=== PATIENT | female | born 1975 | race Caucasian/White ===

== ENCOUNTER 2020-05-13 05:22 | Inpatient (IN) | payer BC ==
[2020-05-13] MEDS ORDERED: Scopolamine 1.5 MG Transdermal Patch TOP SCH (05:40)
[2020-05-13] MEDS ORDERED: Celecoxib 200 MG Cap PO ONE (06:30)
[2020-05-13] MEDS ORDERED: Dextrose 5%-Lactated Ringers 1,000 ML IV SCH (06:30)
[2020-05-13] MEDS ORDERED: Albuterol/Ipratropium 3.0-0.5 MG/3 ML Neb Soln NEB ONE (06:30)
[2020-05-13] MEDS ORDERED: Acetaminophen 500 MG Tab PO ONE (06:30)
[2020-05-13] MEDS ORDERED: cefOXitin 2 GM Vial ONE (06:54)
[2020-05-13] MEDS ORDERED: Succinylcholine 200 MG/10 ML MDV ONE (07:04)
[2020-05-13] MEDS ORDERED: Glycopyrrolate 0.2 MG/ML 5 ML MDV ONE (07:04)
[2020-05-13] MEDS ORDERED: Propofol 200 MG/20 ML SDV ONE (07:04)
[2020-05-13] MEDS ORDERED: Dexamethasone 4 MG/ML SDV ONE (07:04)
[2020-05-13] MEDS ORDERED: Rocuronium 50 MG/5 ML Vial ONE (07:04)
[2020-05-13] MEDS ORDERED: Neostigmine Methylsulfate 1 MG/ML 5 ML Syringe ONE (07:04)
[2020-05-13] MEDS ORDERED: Ondansetron 4 MG/2 ML SDV ONE (07:04)
[2020-05-13] MEDS ORDERED: fentaNYL 250 MCG/5 ML SDV ONE ×2 (07:06→07:35)
[2020-05-13] MEDS: cefOXitin 2 GM in Sodium Chloride 0.9% 50 ML IV ONE ×2 (07:13→10:29)
[2020-05-13] MEDS ORDERED: Ketamine 500 MG/5 ML MDV IV SCH (07:30)
[2020-05-13] MEDS ORDERED: Magnesium Sulfate 3.6 GM in Sodium Chloride 0.9% 100 ML IV SCH (07:30)
[2020-05-13] MEDS ORDERED: Ketamine 50 MG in Sodium Chloride 0.9% 49.5 ML IV SCH (07:30)
[2020-05-13] MEDS ORDERED: Magnesium Sulfate 3.8 GM in Sodium Chloride 0.9% 250 ML IV ONE (07:30)
[2020-05-13] MEDS ORDERED: Cyclobenzaprine 10 MG Tab PO PRN (10:33)
[2020-05-13] MEDS ORDERED: oxyCODONE 5 MG Tab PO PRN (10:35)
[2020-05-13] MEDS ORDERED: Ondansetron 4 MG/2 ML SDV IVPUSH PRN (11:00)
[2020-05-13] MEDS ORDERED: Labetalol 20 MG/4 ML Syringe IVPUSH PRN (11:00)
[2020-05-13] MEDS ORDERED: Calcium Gluconate 10% 1 GM/10 ML SDV IVPUSH PRN (11:00)
[2020-05-13] MEDS ORDERED: HYDROmorphone 1 MG/ML Syringe IV PRN (11:00)
[2020-05-13] MEDS ORDERED: Acetaminophen 500 MG Tab PO PRN (11:00)
[2020-05-13] MEDS ORDERED: diphenhydrAMINE 50 MG/ML SDV IVPUSH PRN (11:00)
[2020-05-13] MEDS ORDERED: hydrOXYzine HCL 100 MG/2 ML SDV IM PRN (11:00)
[2020-05-13] MEDS ORDERED: Pantoprazole 40 MG Vial IVPUSH SCH (11:00)
[2020-05-13] MEDS ORDERED: Albuterol/Ipratropium 3.0-0.5 MG/3 ML Neb Soln INH PRN (11:00)
[2020-05-13] MEDS ORDERED: Metoclopramide 10 MG/2 ML SDV IVPUSH PRN (11:00)
[2020-05-13] MEDS ORDERED: HYDROmorphone 0.5 MG/0.5 ML Syringe IVPUSH PRN (11:00)
[2020-05-13] MEDS: Albuterol/Ipratropium 3.0-0.5 MG/3 ML Neb Soln INH SCH ×3 (11:34→21:14)
[2020-05-13] MEDS: Dextrose 5%-Lactated Ringers 1,000 ML IV SCH ×2 (13:08→22:27)
[2020-05-13] MEDS: cefOXitin 2 GM in Sodium Chloride 0.9% 50 ML IV SCH ×2 (13:11→19:59)
[2020-05-13] MEDS: Acetaminophen 500 MG Tab PO SCH ×2 (13:21→21:15)
[2020-05-13] MEDS ORDERED: MVI, Adult with Vitamin K 10 ML, Thiamine 200 MG, Zinc/Copper/Manganese/Selenium 1 ML i... IV SCH ×4 (16:00)
[2020-05-13] MEDS: Heparin Sodium 5,000 Units/ML Vial SUBCUT SCH (17:47)
[2020-05-13] MEDS: Lisinopril 20 MG Tab PO SCH (21:14)
[2020-05-14] MEDS: cefOXitin 2 GM in Sodium Chloride 0.9% 50 ML IV SCH ×2 (01:22→07:53)
[2020-05-14] MEDS ORDERED: Iopamidol 612 MG/ML 50 ML SDV PO STA (03:00)
[2020-05-14] MEDS: Dextrose 5%-Lactated Ringers 1,000 ML IV SCH (04:43)
[2020-05-14] MEDS: Heparin Sodium 5,000 Units/ML Vial SUBCUT SCH ×2 (05:50→17:18)
[2020-05-14] MEDS: Acetaminophen 500 MG Tab PO SCH ×3 (05:50→21:00)
[2020-05-14] MEDS: Albuterol/Ipratropium 3.0-0.5 MG/3 ML Neb Soln INH SCH ×4 (07:30→20:56)
[2020-05-14] MEDS: Levothyroxine 50 MCG Tab PO SCH (07:48)
[2020-05-14] MEDS ORDERED: Dextrose 5%-Lactated Ringers 1,000 ML IV SCH (08:45)
[2020-05-14] MEDS: SCOPOLAMINE PATCH CHECK TOP SCH (10:02)
[2020-05-14] MEDS: Lisinopril 20 MG Tab PO SCH ×2 (10:03→20:56)
[2020-05-14] MEDS: Chlorthalidone 25 MG Tab PO SCH ×2 (10:03→10:09)
[2020-05-14] MEDS: Cetirizine 10 MG Tab PO SCH (10:06)
[2020-05-14] MEDS: Celecoxib 200 MG Cap PO SCH ×2 (10:06→20:56)
[2020-05-14] MEDS: Citalopram 20 MG Tab PO SCH (10:06)
[2020-05-14] MEDS: Pantoprazole 40 MG Delayed-Release Granules 1 Packet PO SCH (10:09)
[2020-05-14] MEDS ORDERED: MVI, Adult with Vitamin K 10 ML, Thiamine 200 MG, Zinc/Copper/Manganese/Selenium 1 ML i... IV SCH ×4 (16:00)
[2020-05-15] MEDS: Acetaminophen 500 MG Tab PO SCH (05:54)
[2020-05-15] MEDS: Heparin Sodium 5,000 Units/ML Vial SUBCUT SCH (05:54)
[2020-05-15] MEDS: Albuterol/Ipratropium 3.0-0.5 MG/3 ML Neb Soln INH SCH (07:14)
[2020-05-15] MEDS ORDERED: Cyanocobalamin (Vitamin B12) 1,000 MCG/ML SDV IM ONE (09:00)
[2020-05-15] MEDS ORDERED: Magnesium Hydroxide 400 MG/5 ML Susp 30 ML Cup PO ONE (09:10)
[2020-05-15] MEDS: SCOPOLAMINE PATCH CHECK TOP SCH (09:20)
[2020-05-15] MEDS: Citalopram 20 MG Tab PO SCH (09:21)
[2020-05-15] MEDS: Chlorthalidone 25 MG Tab PO SCH ×2 (09:21→09:24)
[2020-05-15] MEDS: Levothyroxine 50 MCG Tab PO SCH (09:21)
[2020-05-15] MEDS: Cetirizine 10 MG Tab PO SCH (09:21)
[2020-05-15] MEDS: Lisinopril 20 MG Tab PO SCH (09:21)
[2020-05-15] MEDS: Pantoprazole 40 MG Delayed-Release Granules 1 Packet PO SCH (09:22)
[2020-05-15] MEDS: Celecoxib 200 MG Cap PO SCH (09:22)
--- NOTE | 2020-05-16 09:16 | CR ---
[facility] HISTORY: Postbariatric surgery FINDINGS: Patient swallowed water-soluble contrast. Upright views of the abdomen show no evidence of extravasation or obstruction. There is a surgical drain in the left upper quadrant. IMPRESSION: Status post bariatric surgery No extravasation or obstruction seen
--- NOTE | 2020-05-20 12:27 | PN ---
DATE OF SERVICE: 05/14/2020 The patient has been afebrile with stable vital signs, status post Juancho-en-Y gastric bypass yesterday. Clinically, she has done well. Upper GI x-ray looks good. We will begin a step- 2 diet today, back down on the IV rate, maximize her activity, and work with pulmonary toilet. Gui Arnold MD /[id number]
--- NOTE | 2020-05-23 09:17 | DISCH ---
FINAL DIAGNOSES: 1. Morbid obesity. 2. Marked hepatomegaly. 3. Paraesophageal diaphragmatic hernia associated with mediastinal lipoma. 4. Segment of stomach status post formation of the gastric pouch. 5. History of hypertension. 6. History of asthma. 7. History of depression and anxiety. 8. Chronic joint pain. 9. History of hypothyroidism. OPERATIVE PROCEDURE: This was done on 05/13, diagnostic laparoscopy with: 1. Laparoscopic Juancho-en-Y gastric bypass along with gastroenterostomy. 2. Srinivas-Cut needle liver biopsy. 3. Repair of paraesophageal diaphragmatic hernia. 4. Excision of mediastinal lipoma. 5. Partial gastrectomy. SUMMARY: This is a 44-year-old female presenting with longstanding morbid obesity and increasingly significant comorbidities. After preoperative evaluation and discussion, she wished to proceed with a gastric bypass procedure. This was done on the date of admission without evident complications. Postoperatively, she has done well. She is tolerating step-2 diet, which should be staying on until her 1st appointment, which will be with Wendy Giang at [facility] on Saturday, 05/23. She will be instructed in terms of her pain medications. She will need to be on Celebrex at this point on a p.r.n. basis for pain and will be instructed to hold her vitamins and other supplements until at the 1st appointment. /[id number]
--- NOTE | 2020-05-23 17:56 | OR ---
DATE OF PROCEDURE: 05/13/2020 SURGEON: Gui Arnold MD PREOPERATIVE DIAGNOSIS: Morbid obesity. POSTOPERATIVE DIAGNOSES: 1. Morbid obesity. 2. Marked hepatomegaly. 3. Paraesophageal diaphragmatic hernia. 4. Mediastinal lipoma. 5. Area of gastric devascularization following pouch formation. OPERATIVE PROCEDURE: Diagnostic laparoscopy with: 1. Laparoscopic Juancho-en-Y gastric bypass with long limb gastroenterostomy (13008). 2. Srinivas-Cut needle liver biopsy (67246). 3. Repair of paraesophageal diaphragmatic hernia (09288). 4. Excision of mediastinal lipoma (81670). 5. Partial gastrectomy (13073). ANESTHESIA: General. INDICATIONS FOR PROCEDURE: This is a 44-year-old female presenting with longstanding morbid obesity and increasingly significant comorbidities. After preoperative evaluation and discussion, she wished to proceed with a gastric bypass procedure. Potential risks of the procedure including bleeding, infection, leaks from various GI tract closures, problems with bowel obstruction over time, as well as the possibility of cardiopulmonary, septic, or hemorrhagic complications leading to were discussed, and the patient wishes to proceed. DETAILS OF PROCEDURE: The patient was taken to the operating room and placed in a supine position. After general endotracheal anesthesia was induced, she was converted to a lithotomy position and the abdomen prepped and draped. 15 cm inferior and 5 cm left of the xiphoid process, a transverse incision was made and peritoneal cavity entered under direct vision with an Optiview trocar and inflated to 15 mmHg pressure with CO2. Laparoscope was then reinserted. No underlying trocar insertion site injuries were seen. Following this, 5 additional trocars were placed across the upper and mid abdomen. Bilateral transversus abdominis plane blocks were placed. The patient was noted to have marked hepatomegaly with the liver grossly fatty infiltrated. Srinivas-Cut needle biopsies were obtained from the left lobe of the liver. Minimal bleeding from the biopsy sites was controlled with electrocautery. The omentum was then divided in the midline up to the level of the transverse colon. This allowed identification of the small bowel to the ligament of Treitz. The small bowel was then traced out 125 cm distal to that point with the DIAMANTE stapler. The small bowel was then traced out an additional 150 cm where a [id number] enteroenterostomy was accomplished with internal firing of the Endo-DIAMANTE 60 mm stapler. Common opening was closed transversely with the same stapler and angles anastomosed and mesenteric defect approximated with some 0 Ethibond sutures along with fibrin sealant. The divided end of the Juancho limb was then brought through an antecolic position up to the level of the gastroesophageal junction without tension. The liver was then retracted anteriorly. The patient was noted to have a moderate-sized paraesophageal diaphragmatic hernia. Upon this dissection, a mediastinal lipoma was encountered, and this was excised as well. The diaphragmatic hernia was then repaired anteriorly with some 0 Ethibond sutures reinforced with PTFE pledgets. The gastrointestinal balloon catheter was then inflated to 15 mL and pulled up snugly against the EG junction. Gastric wall over the apex balloon was then marked with electrocautery and balloon catheter deflated and withdrawn. The lesser omental tissue adjacent to the gastric cardia was then incised, allowing dissection behind the stomach at that level. Pouch formation was initiated with a transverse firing of the DIAMANTE stapler at the level of the cauterized sabrina on the gastric cardia and then completed with additional firings of the DIAMANTE stapler up to and through the angle of His. Upon completion of the pouch, the patient was noted to have an area of ischemia involving the distal aspect of the gastric pouch. This was excised with an additional DIAMANTE staple line and sent as a separate specimen. The anvil of a 25 mm EEA stapler was then attached to a Maury sump type tube. The latter was brought down through the mouth and a small opening in the gastric pouch, allowing the anvil likewise to be pulled down to within the gastric pouch. The divided end of the Juancho limb was then opened and main body of the EEA stapler passed several centimeters into the lumen of small bowel, brought up the anvil, and united with it, thus creating the gastrojejunostomy. Upon removal of the stapler, double donuts of mucosa were noted within it. The small bowel was closed off with a vascular staple line. Gastrojejunostomy was reinforced with some 3-0 Vicryl seromuscular stitch along with fibrin sealant. A leak test was accomplished with injection of 120 mL of air in the gastric pouch while it was submerged with cefoxitin-containing saline solution. No leaks were identified. A single Hira- Green drain was taken out through the left lateral trocar site and positioned adjacent to the gastric cardia, and from there, up into the splenic fossa. The trocars were sequentially removed and the peritoneal cavity deflated. The incisions were closed with 4-0 Vicryl skin stitch along with the drain being fixed with 4-0 Vicryl stitch as well. The patient was taken to the recovery room in satisfactory condition. There were no evident complications. Gui Arnold MD /[id number]
--- NOTE | 2020-05-25 08:48 | DISCH ---
FINAL DIAGNOSES: 1. Morbid obesity. 2. Marked hepatomegaly. 3. Paraesophageal diaphragmatic hernia associated with mediastinal lipoma. 4. Segment of gastric pouch devascularized following pouch formation. 5. History of nephrolithiasis. 6. Anxiety and dysthymia. 7. Intermittent asthma. 8. Hypertension. OPERATIVE PROCEDURES: Done on 05/13, diagnostic laparoscopy with: 1. Laparoscopic Juancho-en-Y gastric bypass with long limb gastroenterostomy. 2. Srinivas-Cut needle liver biopsy. 3. Repair of paraesophageal diaphragmatic hernia. 4. Excision of mediastinal lipoma. 5. Partial gastrectomy. SUMMARY: This is a 44-year-old female presenting with longstanding morbid obesity and increasingly significant comorbidities. After preoperative evaluation and discussion, she wished to undergo the gastric bypass procedure. This was done on the date of admission with the concurrent procedures being undertaken as well. Postoperatively, she has had no significant problems since she is tolerating a step-2 diet, and will be discharged home on her usual medications plus Celebrex and Tylenol as needed for pain. She will be following up with Wendy Giang at [facility] on 05/23/2020. /[id number]
== END 2020-05-15 09:42 | disposition home or self-care (01) | DRG 403 ==
LOC: JP.MS 05:22 → JP.SDS 05:22 → UNDOADMIN 05:22 → JP.SDSSCHI 05:22 → EDSTATUS 07:15 → JP.MS 09:00
PROVIDERS: ADMIT Surgery; ATTEND Surgery
PROC: 0D164ZA Bypass Stomach to Jejunum, Percutaneous Endoscopic Approach (ICD-10-PCS; principal; 2020-05-13)
PROC: 0FB24ZX Excision of Left Lobe Liver, Percutaneous Endoscopic Approach, Diagnostic (ICD-10-PCS; 2020-05-13)
PROC: 0BQT4ZZ Repair Diaphragm, Percutaneous Endoscopic Approach (ICD-10-PCS; 2020-05-13)
PROC: 0JB63ZZ Excision of Chest Subcutaneous Tissue and Fascia, Percutaneous Approach (ICD-10-PCS; 2020-05-13)
PROC: 0DB64ZZ Excision of Stomach, Percutaneous Endoscopic Approach (ICD-10-PCS; 2020-05-13)
DX: E66.01 Morbid (severe) obesity due to excess calories (principal); I10 Essential (primary) hypertension; F41.9 Anxiety disorder, unspecified; J30.9 Allergic rhinitis, unspecified; E03.9 Hypothyroidism, unspecified; J45.20 Mild intermittent asthma, uncomplicated; F34.1 Dysthymic disorder; Z68.41 Body mass index [BMI] 40.0-44.9, adult; Z87.442 Personal history of urinary calculi; Z98.890 Other specified postprocedural states; Z79.899 Other long term (current) drug therapy; Z79.890 Hormone replacement therapy; Z91.048 Other nonmedicinal substance allergy status; Z87.891 Personal history of nicotine dependence; R16.0 Hepatomegaly, not elsewhere classified; K44.9 Diaphragmatic hernia without obstruction or gangrene; D17.4 Benign lipomatous neoplasm of intrathoracic organs; K31.89 Other diseases of stomach and duodenum
CPT/HCPCS: 36415; 74240; 74240-26; 82962; 84703; 86850; 86900; 86901; 88304; 88307; 88313; 94640; 94762; A9270-GY; C9113; J0171; J0330; J0694; J1100; J1644; J2405; J2704; J2710; J2795; J3010; J3410; J3411; J3420; J3475; J3490; J7050; J7121; J7620-GY; Q9967